=== PATIENT | female | born 1935 | race Caucasian/White ===

== ENCOUNTER 2017-06-14 08:11 | Day surgery (SDC) | payer OTHER, BC ==
[~2017-06-14] VITALS: Ht 162.6 cm; Wt 76.2 kg
[2017-06-14] MEDS ORDERED: CEFAZOLIN SOD 1 GM in D5W 50 ML IV ONE (08:15)
[2017-06-14] MEDS ORDERED: ROCURONIUM BROMIDE 10 MG/ML (ZEMURON) IV ONE (09:25)
[2017-06-14] MEDS ORDERED: MIDAZOLAM HCL 5 MG/5 ML VIAL IVP ONE (09:25)
[2017-06-14] MEDS ORDERED: SEVOFLURANE 15 MIN GAS INH ONE (09:25)
[2017-06-14] MEDS ORDERED: fentaNYL CITRATE/PF 100 MCG/2 ML AMP IVP ONE (09:25)
[2017-06-14] MEDS ORDERED: PROPOFOL 200MG/ 20ML VIAL (DIPRIVAN) IV ONE (09:25)
[2017-06-14] MEDS ORDERED: ONDANSETRON HCL 4 MG/2 ML VIAL IVP ONE (09:25)
[2017-06-14] MEDS ORDERED: BUPIVACAINE /EPINEPHRINE/PF 0.25% 30 ML VIAL INJ ONE (09:25)
[2017-06-14] MEDS ORDERED: LR 1,000 ML IV SCH (10:06)
[2017-06-14] MEDS ORDERED: D5/0.45 NS 1,000 ML IV SCH (10:12)
[2017-06-14] MEDS ORDERED: HYDROcodone/ACETAMIN 5-325 MG TAB (NORCO/ VICODIN) PO PRN ×2 (10:15)
[2017-06-14] MEDS ORDERED: HYDROmorphone 1 MG INJ. 1 MG/ML AMPUL IVP PRN (10:15)
[2017-06-14] MEDS ORDERED: METOCLOPRAMIDE HCL 10 MG/2 ML VIAL IVP PRN (10:15)
[2017-06-14] MEDS ORDERED: MORPHINE 2 MG/ML INJ. SYRINGE IVP PRN ×3 (10:15)
[2017-06-14 11:59] VITALS: BP_SYST 132
== END 2017-06-14 11:53 | disposition home or self-care (01) ==
LOC: SDS 08:11 → SMU 08:12 → SDS 11:53
PROVIDERS: ATTEND Colon & Rectal Surgery
DX: C50.911 Malignant neoplasm of unspecified site of right female breast (principal); I10 Essential (primary) hypertension; E78.5 Hyperlipidemia, unspecified; M54.5 Low back pain; Z90.49 Acquired absence of other specified parts of digestive tract; Z95.1 Presence of aortocoronary bypass graft; Z98.890 Other specified postprocedural states; Z80.41 Family history of malignant neoplasm of ovary; Z80.1 Family history of malignant neoplasm of trachea, bronchus and lung; I48.92 Unspecified atrial flutter; Z79.899 Other long term (current) drug therapy; M19.90 Unspecified osteoarthritis, unspecified site; E11.40 Type 2 diabetes mellitus with diabetic neuropathy, unspecified; D64.9 Anemia, unspecified; E66.9 Obesity, unspecified
CPT/HCPCS: 19120; 82962; 88305; J0690; J2250; J2405; J2704; J3010; J3490; J7060; J7120

== ENCOUNTER 2017-08-02 07:43 | Day surgery (SDC) | payer OTHER, BC ==
[~2017-08-02] VITALS: Ht 162.6 cm; Wt 76.2 kg
[~2017-08-02 07:43] MED LIST: CEFAZOLIN 1 GM IVPB PREMIX 50 ML IV ONE
[2017-08-02] MEDS ORDERED: ROCURONIUM BROMIDE 10 MG/ML (ZEMURON) IV ONE (07:44)
[2017-08-02] MEDS ORDERED: fentaNYL CITRATE/PF 100 MCG/2 ML AMP IVP ONE (07:44)
[2017-08-02] MEDS ORDERED: SEVOFLURANE 15 MIN GAS INH ONE (07:44)
[2017-08-02] MEDS ORDERED: PROPOFOL 200MG/ 20ML VIAL (DIPRIVAN) IV ONE (07:44)
[2017-08-02] MEDS ORDERED: SUCCINYLCHOLINE CHLORIDE 20 MG/ML(QUELICIN) IVP ONE (07:44)
[2017-08-02] MEDS ORDERED: ONDANSETRON HCL 4 MG/2 ML VIAL IVP ONE (07:44)
[2017-08-02] MEDS ORDERED: LR 1,000 ML IV.SOLN IV ONE (07:44)
[2017-08-02] MEDS ORDERED: BUPIVACAINE /PF 0.25% 30 ML VIAL INJ ONE (07:44)
[2017-08-02] MEDS ORDERED: MIDAZOLAM HCL 5 MG/ML VIAL (VERSED) IV ONE (07:44)
[2017-08-02 08:30] LABS: INR 1.1 (0.8-1.2); PROTHROMBIN TIME 12.1 SECS (9.5-12.5)
[2017-08-02] MEDS ORDERED: LR 1,000 ML IV SCH (12:41)
[2017-08-02] MEDS ORDERED: METOCLOPRAMIDE HCL 10 MG/2 ML VIAL IVP PRN (12:45)
[2017-08-02] MEDS ORDERED: MORPHINE 2 MG/ML INJ. SYRINGE IVP PRN ×3 (12:45)
[2017-08-02] MEDS ORDERED: D5/0.45 NS 1,000 ML IV SCH (12:53)
[2017-08-02] MEDS ORDERED: HYDROcodone/ACETAMIN 5-325 MG TAB (NORCO/ VICODIN) PO PRN ×2 (13:00)
[2017-08-02] MEDS ORDERED: HYDROmorphone 1 MG INJ. 1 MG/ML AMPUL IVP PRN (13:00)
[2017-08-02 14:30] VITALS: BP_SYST 133
== END 2017-08-02 15:20 | disposition home or self-care (01) ==
LOC: SDS 07:43 → SMU 07:45 → EDSTATUS 10:10 → SDS 15:20
PROVIDERS: ATTEND Colon & Rectal Surgery
DX: C50.911 Malignant neoplasm of unspecified site of right female breast (principal); D36.0 Benign neoplasm of lymph nodes; H26.9 Unspecified cataract; I10 Essential (primary) hypertension; E78.5 Hyperlipidemia, unspecified; M54.5 Low back pain; Z98.890 Other specified postprocedural states; Z95.1 Presence of aortocoronary bypass graft; E66.3 Overweight; E11.40 Type 2 diabetes mellitus with diabetic neuropathy, unspecified; M19.90 Unspecified osteoarthritis, unspecified site; E66.9 Obesity, unspecified
CPT/HCPCS: 19301; 36415; 38525; 78195; 85610; 85730; 88307; 88333; 88342; A9541; J0330; J0690; J2250; J2405; J2704; J3010; J3490; J7120; 88305